=== PATIENT | female | born 2000 | race African-American/Black ===

== ENCOUNTER 2021-09-28 12:21 | Inpatient (IN) ==
[2021-09-28 20:50] LABS: Basophils % 0.3 %; Eosinophils # 0.1 K/mcL (0.0-0.6); Eosinophils % 0.4 %; Hematocrit 38.3 % (35.3-44.9); Hemoglobin 12.5 g/dL (11.5-15.4); Immature Granulocytes % 0.3 % (0-4); Lymphocytes # 3.9 K/mcL (0.6-4.6); Mean Corpuscular HGB Conc 32.6 g/dL (31.6-35.5); Mean Corpuscular Hemoglobin 26.2 pg (28.0-33.3); Mean Corpuscular Volume 80.1 fL (83.0-100.0); Monocytes # 1.3 K/mcL (0.0-1.3); Monocytes % 9.1 %; Neutrophils # 8.7 K/mcL (1.6-8.9); Platelet Count 240 K/mcL (140-400); Red Blood Count 4.78 M/mcL (3.82-4.97); Red Cell Distribution Width 15.7 % (11.5-14.5); Segmented Neutrophils % 61.9 %
[2021-09-28 21:10] LABS: Alanine Aminotransferase 9 Units/L (7-52); Albumin 4.7 g/dL (3.5-5.7); Albumin/Globulin Ratio 1.4 (1.1-2.2); Alkaline Phosphatase 77 Units/L (34-104); Aspartate Amino Transferase 10 Units/L (13-39); BUN/Creatinine Ratio 16 (6-26); Bilirubin,Total 0.8 mg/dL (0.3-1.0); Blood Urea Nitrogen 13 mg/dL (6-20); Carbon Dioxide 24 mEq/L (23-29); Chloride 103 mEq/L (98-107); Globulin 3.3 g/dL (2.4-3.5); Glucose 69 mg/dL (70-105); Osmolality,Calculated 284 (280-300); Potassium 3.2 mEq/L (3.5-5.1); Sodium 138 mEq/L (136-145); eGFR For African Americans > 60 (> 60); eGFR For Non-African Americans > 60 (> 60)
[2021-09-28] MEDS ORDERED: diazePAM 10 MG/2 ML SYRINGE IVP ONE (22:08)
[2021-09-28] MEDS ORDERED: Naloxone 0.4 MG/ML INJ IVP PRN (23:42)
[2021-09-28] MEDS ORDERED: *HR* OxyCODONE Immed Rel 5 MG TABLET PO PRN (23:42)
[2021-09-28] MEDS ORDERED: *HR* HYDROcodone/Acet 5/325 mg TABLET PO PRN (23:42)
[2021-09-28] MEDS ORDERED: Melatonin 3 MG TABLET PO PRN (23:42)
[2021-09-28] MEDS ORDERED: Ondansetron 4 MG/2 ML VIAL IVP PRN (23:42)
[2021-09-29] MEDS ORDERED: Gadolinium Contrast Agent (WT Based) IV PRN (00:17)
[2021-09-29 03:24] LABS: Basophils # 0.1 K/mcL (0.0-0.2); Basophils % 0.5 %; Eosinophils % 0.4 %; Hematocrit 35.2 % (35.3-44.9); Hemoglobin 11.6 g/dL (11.5-15.4); Immature Granulocytes % 0.3 % (0-4); Lymphocytes # 2.4 K/mcL (0.6-4.6); Lymphocytes % 22.1 %; Mean Corpuscular Hemoglobin 26.1 pg (28.0-33.3); Mean Corpuscular Volume 79.3 fL (83.0-100.0); Mean Platelet Volume 10.4 fL (9.4-12.4); Monocytes % 9.3 %; Neutrophils # 7.5 K/mcL (1.6-8.9); Platelet Count 235 K/mcL (140-400); Red Blood Count 4.44 M/mcL (3.82-4.97); Red Cell Distribution Width 15.7 % (11.5-14.5); Segmented Neutrophils % 67.4 %; White Blood Count 11.1 K/mcL (4.3-11.1)
[2021-09-29 03:31] LABS: INR 1.2; Prothrombin Time 13.2 Seconds (9.4-12.1)
[2021-09-29 03:46] LABS: BUN/Creatinine Ratio 17 (6-26); Blood Urea Nitrogen 13 mg/dL (6-20); C-Reactive Protein < 5 mg/L (Less than 10); Calcium 9.4 mg/dL (8.6-10.3); Carbon Dioxide 22 mEq/L (23-29); Chloride 102 mEq/L (98-107); Glucose 127 mg/dL (70-105); Magnesium 1.7 mg/dL (1.6-2.6); Osmolality,Calculated 282 (280-300); Potassium 3.1 mEq/L (3.5-5.1); Sodium 135 mEq/L (136-145); eGFR For African Americans > 60 (> 60); eGFR For Non-African Americans > 60 (> 60)
[2021-09-29 03:49] LABS: Thyroid Stimulating Hormone 0.745 mcIU/mL (0.340-5.600)
[2021-09-29] MEDS ORDERED: GADOBUTROL 30 MMOL/30 ML VIAL IVP ONE (10:05)
[2021-09-29 11:55] LABS: Estimated Average Glucose 114 mg/dl; Hemoglobin A1C 5.6 %
[2021-09-29] MEDS: acetaZOLAMIDE 250 MG TABLET PO SCH ×2 (15:42→20:58)
[2021-09-30] MEDS: acetaZOLAMIDE 250 MG TABLET PO SCH ×3 (08:25→22:08)
[2021-09-30] MEDS ORDERED: acetaZOLAMIDE 250 MG TABLET PO ONE (08:33)
[2021-09-30] MEDS: Acetaminophen 325 MG TABLET PO PRN ×2 (09:42→16:02)
[2021-10-01] MEDS: Acetaminophen 325 MG TABLET PO PRN (08:30)
[2021-10-01] MEDS: acetaZOLAMIDE 250 MG TABLET PO SCH (08:30)
[2021-10-01 08:31] VITALS: O2SAT 100
[2021-10-01 10:30] VITALS: BP 101/65; PULSE 104; TEMP 97.5
== END 2021-10-01 14:53 | disposition short-term general hospital (02) | DRG 58 ==
LOC: 3BNU 12:21 → EMEROOARM 12:21 → SUATTDRO 09-29 00:01 → 3BNU 09-29 00:40
PROVIDERS: ADMIT Internal Medicine; ATTEND Internal Medicine